=== PATIENT | female | born 1985 | race Caucasian/White ===

== ENCOUNTER 2018-03-29 10:36 | Emergency (ER) | payer SELFPAY ==
[~2018-03-29] VITALS: Ht 162.6 cm; Wt 68.0 kg
--- NOTE | 2018-03-29 10:36 | NUR ---
Patient TOM SPENCERS accompanied by family, transferred to bed 12. RN evaluating patient at bedside.
[2018-03-29 11:03] VITALS: BP 110/74
--- NOTE | 2018-03-29 11:14 | NUR ---
PATIENT PRESENTS TO ED WITH LOWER ABDOMEN CRAMPING WITH VAGINAL BLEEDING X 3DAYS ---DENIES INJURY . PT STATES . DENIES N/V/D; SKIN IS PINK/WARM/DRY; AAOX4 WITH EVEN AND STEADY GAIT; LUNGS CLEAR BL; HR EVEN AND REGULAR; PT DENIES ANY FEVER, CP, SOB, OR COUGH AT THIS TIME; PATIENT STATES PAIN OF 10/10 AT THIS TIME; VSS; PATIENT POSITIONED FOR COMFORT; HOB ELEVATED; BEDRAILS UP X2; BED DOWN. ER MD MADE AWARE OF PT STATUS.
[2018-03-29] MEDS ORDERED: ONDANSETRON 4 MG/2 ML VIAL IVP ONE (11:15)
[2018-03-29] MEDS ORDERED: MORPHINE SULFATE 4 MG/ML SYR IVP ONE (11:15)
[2018-03-29 11:35] LABS: BASOPHILS % (AUTO) 0.4 % (0.0-2.0); EOSINOPHILS # (AUTO) 0.1 K/uL (0-0.4); EOSINOPHILS % (AUTO) 1.5 % (0.0-4.0); HEMATOCRIT 34.1 % (36-48); HEMOGLOBIN 11.7 g/dL (12.0-16.0); LYMPHOCYTES # (AUTO) 2.2 K/uL (2.5-16.5); LYMPHOCYTES % (AUTO) 28.9 % (20.5-51.1); MEAN CORPUSCULAR HEMOGLOBIN 30 pg (27-31); MEAN CORPUSCULAR HGB CONC 34 g/dL (33-37); MEAN CORPUSCULAR VOLUME 87.6 fL (80-94); MONOCYTES # (AUTO) 0.5 K/uL (0.8-1.0); MONOCYTES % (AUTO) 6.7 % (1.7-9.3); NEUTROPHILS # (AUTO) 4.7 K/uL (1.8-7.7); NEUTROPHILS % (AUTO) 62.5 % (42.2-75.2); PLATELET COUNT (AUTO) 231 K/uL (140-450); RED BLOOD CELL COUNT(AUTO) 3.89 MIL/uL (4.20-5.40); RED CELL DISTRIBUTION WIDTH 12.7 % (11.6-13.7); WHITE BLOOD COUNT (AUTO) 7.5 K/uL (4.8-10.8)
--- NOTE | 2018-03-29 11:45 | NUR ---
heavy bleeding with large tissue passed---POC collected and sent to lab
--- NOTE | 2018-03-29 12:00 | NUR ---
ultrasound at bedside
[2018-03-29] MEDS ORDERED: MORPHINE SULFATE 10 MG/ML SYR IVP ONE (12:05)
--- NOTE | 2018-03-29 12:10 | NUR ---
US at bedside for exam.
[2018-03-29] MEDS ORDERED: MORPHINE SULFATE 4 MG/ML SYR ONE (12:13)
--- NOTE | 2018-03-29 13:00 | NUR ---
large amount vaginal bleeding---pt cleaned
[2018-03-29 13:14] LABS: APPEARANCE,URINE HAZY (CLEAR); BILIRUBIN,URINE NEGATIVE (NEGATIVE); BLOOD, URINE 3+ (NEGATIVE); COLOR,URINE RED (YELLOW); LEUKOCYTE ESTERASE ,URINE 2+ (NEGATIVE); NITRITE, URINE POSITIVE (NEGATIVE); UGLUCOSE TRACE (NEGATIVE)
[2018-03-29 13:18] LABS: RBC,URINE TOO NUMEROUS TO COUN /HPF (0-5)
[2018-03-29] MEDS ORDERED: METHYLERGONOVINE 0.2 MG/ML AMP IM ONE (14:20)
[2018-03-29] MEDS ORDERED: NACL 0.9% 1,000 ML IV ONE (14:20)
[2018-03-29] MEDS ORDERED: NACL 0.9% 500 ML IV ONE (14:20)
[2018-03-29] MEDS ORDERED: KETOROLAC 15 MG/ML VIAL IVP ONE (15:00)
[2018-03-29] MEDS ORDERED: fentaNYL 0.05 MG/ML VIAL IVP ONE (15:00)
--- NOTE | 2018-03-29 16:45 | NUR ---
pt on cell phone holding conversation without grimace, no cry---pt will call back from home dc pending 's arrival---will continue to observe for pain control
[2018-03-29 17:19] VITALS: BP 101/70
--- NOTE | 2018-03-29 17:20 | NUR ---
Patient discharged with v/s stable. Written and verbal after care instructions given and explained. Patient alert, oriented and verbalized understanding of instructions. Ambulatory with steady gait. All questions addressed prior to discharge. ID band removed. Patient advised to follow up with PMD. Rx of methergine/norco/zofran given. Patient educated on indication of medication including possible reaction and side effects. Opportunity to ask questions provided and answered.
== END 2018-03-29 17:20 | disposition home or self-care (01) ==
LOC: MED 10:36
DX: O03.9 Complete or unspecified spontaneous abortion without complication (principal)
CPT/HCPCS: 36415; 76817; 81001; 84702; 85025; 86900; 86901; 87086; 96374; 96375; 96376; 99285; J1885; J2210; J2270; J2405; J3010; Q0092; J7030

== ENCOUNTER 2018-04-19 18:26 | Inpatient (IN) | payer SELFPAY ==
[~2018-04-19] VITALS: Ht 160 cm; Wt 65.8 kg
[2018-04-19 18:34] VITALS: BP 103/66
--- NOTE | 2018-04-19 18:44 | NUR ---
Patient ambulated to bed 12 with family. RN evaluating patient at bedside.
--- NOTE | 2018-04-19 18:57 | NUR ---
32 YO F BIB W/ C/O BURNING URINARY SENSATION , VAGINAL BLEEDING, LOWER ABD PAIN & LOWER BACK PAIN X 3 DAYS. PT HAD MISCARRIAGE OF TWINS ABOUT 22 DAYS AGO AND THIS IS WHAT HAS OFFSET HER DEPRESSION. PER PT IS STILL BLEEDING. PT REPORTS THAT HER STOMACH HAS ALSO BEEN BLAOTING AND UNCOMFORTABLE. STANDING FOR 5+ MINS, BLEEDING INCREASES. PT HAS NOT STATED THAT SHE WANTS TO HARM HERSELF, BUT CONCERNED. HX DEPRESSION.
--- NOTE | 2018-04-19 19:10 | NUR ---
Pt report given to ROCK CESAR. Transfer of care at this time.
--- NOTE | 2018-04-19 19:59 | NUR ---
Dr. Bob evaluating patient at bedside.
[2018-04-19] MEDS ORDERED: KETOROLAC 30 MG/ML VIAL IM ONE (20:10)
[2018-04-19 20:41] LABS: BASOPHILS # (AUTO) 0.1 K/uL (0.00-0.22); BASOPHILS % (AUTO) 0.7 % (0.0-2.0); EOSINOPHILS # (AUTO) 0.2 K/uL (0-0.4); EOSINOPHILS % (AUTO) 2.1 % (0.0-4.0); HEMATOCRIT 32.2 % (36-48); HEMOGLOBIN 10.8 g/dL (12.0-16.0); LYMPHOCYTES # (AUTO) 3.4 K/uL (2.5-16.5); LYMPHOCYTES % (AUTO) 39.4 % (20.5-51.1); MEAN CORPUSCULAR HEMOGLOBIN 29 pg (27-31); MEAN CORPUSCULAR HGB CONC 34 g/dL (33-37); MEAN CORPUSCULAR VOLUME 86.7 fL (80-94); MONOCYTES # (AUTO) 0.5 K/uL (0.8-1.0); MONOCYTES % (AUTO) 5.8 % (1.7-9.3); NEUTROPHILS # (AUTO) 4.5 K/uL (1.8-7.7); PLATELET COUNT (AUTO) 328 K/uL (140-450); RED BLOOD CELL COUNT(AUTO) 3.72 MIL/uL (4.20-5.40); RED CELL DISTRIBUTION WIDTH 12.7 % (11.6-13.7); WHITE BLOOD COUNT (AUTO) 8.7 K/uL (4.8-10.8)
--- NOTE | 2018-04-19 20:43 | NUR ---
PT TO US VIA WHEELCHAIR
[2018-04-19 20:53] LABS: ANION GAP 12.4 (8-16); CARBON DIOXIDE 27.3 mmol/L (21-32); CREATININE 0.7 mg/dL (0.6-1.3); POTASSIUM 3.7 mmol/L (3.5-5.1)
[2018-04-19 21:08] LABS: ALBUMIN 3.6 g/dL (3.4-5.0); FREE T4 (FREE THYROXINE) 0.98 ng/dL (0.76-1.46); THYROID STIMULATING HORMONE 1.33 uIU/mL (0.34-3.74); TOTAL BILIRUBIN 0.2 mg/dL (0.0-1.0)
[2018-04-19 21:15] LABS: APPEARANCE,URINE CLEAR (CLEAR); BILIRUBIN,URINE NEGATIVE (NEGATIVE); BLOOD, URINE 1+ (NEGATIVE); COLOR,URINE YELLOW (YELLOW); LEUKOCYTE ESTERASE ,URINE NEGATIVE (NEGATIVE); NITRITE, URINE NEGATIVE (NEGATIVE); UGLUCOSE NEGATIVE (NEGATIVE)
[2018-04-19 21:26] LABS: RBC,URINE 0-5 (RARE) /HPF (0-5); WBC,URINE 0-5 (RARE) /HPF (0-5)
--- NOTE | 2018-04-19 21:30 | NUR ---
PT RESTING IN BED. NAD NOTED
[2018-04-19] MEDS ORDERED: LORazepam 2 MG/ML VIAL IM/IVP PRN (22:40)
[2018-04-19] MEDS ORDERED: ACETAMINOPHEN 325 MG TAB PO PRN (22:40)
[2018-04-19] MEDS ORDERED: MORPHINE SULFATE 2 MG/ML SYR IVP PRN (22:40)
[2018-04-19] MEDS ORDERED: DOCUSATE SODIUM 100 MG GELCAP PO PRN (22:40)
[2018-04-19] MEDS ORDERED: ZOLPIDEM 5 MG TAB PO PRN (22:40)
[2018-04-19] MEDS ORDERED: ONDANSETRON 4 MG/2 ML VIAL IM/IVP PRN (22:40)
[2018-04-19] MEDS ORDERED: HYDROcodone/APAP 5/325 MG 1 TAB TAB PO PRN (22:40)
--- NOTE | 2018-04-19 22:50 | NUR ---
PT RESTING IN BED. RR EVEN/UNLABORED.
--- NOTE | 2018-04-19 22:50 | NUR ---
Dr. Vasquez evaluating patient at bedside.
--- NOTE | 2018-04-19 23:10 | NUR ---
RECEIVED FROM ER PER FLOR AWAKE AND ALERT. ABLE TO VERBALIZE NEEDS WELL. NO SOB. DENIES PAIN AT THIS TIME RT MEDICATED WITH PAIN RELIEVER IN ER. CARE PLANS FOR THE NIGHT DISCUSSED WITH HER AND CALL LIGHT WITH IN REACH AT ALL TIMES. SKIN INTACT PER SPOUSE AND PT. NO EDEMA. CTAB. DX. RETAINED PRODUCTS OF INCEPTION. ROM X 4. PT. ONLY SPEAKS DAPHNIE/AFGHANISTAN LANGUAGE. SPOUSE SPEAKS CANADIAN.
--- NOTE | 2018-04-19 23:17 | NUR ---
Patient will be admitted to care of DR ALVARADO. Admited to TELE. Will go to room 121-A. Belongings list completed. Report to TALI VALLES.
[2018-04-19 23:30] LABS: PROTHROMBIN TIME 9.5 secs (10.8-13.4)
[2018-04-19 23:35] LABS: BENZODIAZEPINE, URINE NEG. ng/mL (NEG <=200); CANNABINOID, URINE NEG. ng/mL (NEG <=50); COCAINE, URINE NEG. ng/mL (NEG <=300); OPIATE, URINE NEG. ng/mL (NEG <=2000); PHENCYCLIDINE SCREEN,URINE NEG. ng/mL (NEG <=25)
--- NOTE | 2018-04-19 23:38 | NUR ---
PT. COMPLAINED THAT SHE IS VERY HUNGRY BECAUSE SHE DIDNT EAT THE WHOLE DAY. CALLED RESIDENT MD AND SHE SAID TO MAKE NPO MIDNIGHT. OK TO EAT NOW. EXPLAINED TO PT. SPOUSE PROS AND CONS OF IT. "OK" PER SPOUSE.
[2018-04-19] MEDS: NACL 0.9% 1,000 ML IV SCH (23:41)
[2018-04-19 23:45] LABS: CHOL/HDL RATIO 3.4 (1-4.5); PHOSPHORUS 3.8 mg/dL (2.5-4.9)
--- NOTE | 2018-04-20 00:12 | NUR ---
REMINDED SPOUSE AND PT. NPO STATUS MIDNIGHT. "OK" PER PT. NOTICED PT. KNOWS AND UNDERSTANDS SYRIAN LANGUAGE A LITTLE BIT. ABLE TO UNDERSTAND SIMPLE SYRIAN. ORIENTED TO ROOM , EP TECH , CALL LIGHT AND RAPID RESPONSE . TELEMETRY MONITORING.
[2018-04-20 00:14] VITALS: BP 108/70
[2018-04-20 00:35] LABS: BARBITURATE, URINE NEG. ng/ml (NEG <=200)
--- NOTE | 2018-04-20 01:23 | NUR ---
PT. CRYING AND SPOUSE REQUESTED FOR SOMETHING TO CALM HER DOWN AND RELAX HER. INFORMED RESIDENT MD. ORDERED ATIVAN IVP . MEDICATED REQUESTED. PT. CRYING. ENCOURAGED TO RELAX AND SLEEP. TELEMETRY MONITORING.
[2018-04-20] MEDS ORDERED: LORazepam 2 MG/ML VIAL IVP SCH (01:30)
--- NOTE | 2018-04-20 01:56 | NUR ---
PT. STILL AWAKE AND TALKING TO SPOUSE. PT. STATED SHE WANTS TO DRINK. REMINDED THAT SHE IS NPO SINCE MIDNIGHT . RE-EXPLAINED PROS AND CONS OF NOT FOLLOWING NPO ORDER. SPOUSE UNDERSTOOD WELL AND THEY WERE LAUGHING AND SMILING ABOUT IT. ENCOURAGED TO STOP DRINKING HIS DRINK IN FRONT OF THE . "OK"
--- NOTE | 2018-04-20 03:19 | NUR ---
CHECKED ON PT. SLEEPING.
[2018-04-20 04:41] VITALS: BP 90/50
--- NOTE | 2018-04-20 04:50 | NUR ---
ENDORSED TO RESIDENT PT.'S BP AT THIS TIME. 90/50 AND PULSE 78. "IT IS OK RT WE GAVE ATIVAN AND SHE IS SLEEPING. " NO ORDERS GIVEN. PT. ABLE TO VERBALIZE NEEDS WELL. NO SOB. NO COMPLAINTS DONE. VAGINAL BLEEDING MINIMAL. ONLY WHEN SHE IS STANDING UP FOR A LONG TIME PER PT. ENCOURAGED TO INFORM NURSE IF SHE FEELS LIKE IT IS LIKE URINATING. "OK'"
--- NOTE | 2018-04-20 06:51 | NUR ---
PT. STATED THAT SHE HAD CHANGED HER FEMININE PADS X 2 SINCE ARRIVAL ON FLOOR. NO BM . DID NOT URINATE. NPO SINCE MIDNIGHT. ABLE TO VERBALIZE SIMPLE NEEDS. TELEMETRY MONITORING.
[2018-04-20] MEDS ORDERED: ONDANSETRON 4 MG/2 ML VIAL IVP PRN ×2 (07:40→11:40)
[2018-04-20] MEDS ORDERED: MORPHINE SULFATE 4 MG/ML SYR IM/IVP PRN (07:40)
[2018-04-20] MEDS ORDERED: IBUPROFEN 800 MG TAB PO PRN (07:40)
[2018-04-20] MEDS ORDERED: ACETAMINOPHEN/CODEINE 300/30MG 1 TAB PO PRN (07:40)
--- NOTE | 2018-04-20 07:45 | NUR ---
PATIENT AWAKE, ALERT. RESPIRATION EVEN, UNLABOR ON ROOM AIR. SKIN DRY AND WARM. IV PATENT AND INTACT. COMPLAINED OF BACK PAIN 11/04. PLAN OF CARE WAS DISCUSSED WITH PATIENT. BED AT LOW POSITION, SIDE RAILS UP. CALL LIGHT WITHIN REACH. FAMILY AT BEDSIDE
[2018-04-20 08:00] VITALS: BP 102/61
[2018-04-20] MEDS ORDERED: FERROUS SULFATE 325 MG TABEC PO SCH ×2 (08:00→12:40)
--- NOTE | 2018-04-20 08:45 | NUR ---
SURGICAL CONSENT WAS OBTAINED AT BEDSIDE, SIGNED BY PATIENT. PATIENT VERBALIZED UNDERSTANDING.
[2018-04-20] MEDS ORDERED: ASCORBIC ACID 500 MG TAB PO SCH ×2 (09:00→12:35)
[2018-04-20 09:08] LABS: BASOPHILS # (AUTO) 0.1 K/uL (0.00-0.22); BASOPHILS % (AUTO) 0.9 % (0.0-2.0); EOSINOPHILS # (AUTO) 0.1 K/uL (0-0.4); EOSINOPHILS % (AUTO) 1.8 % (0.0-4.0); HEMATOCRIT 29.2 % (36-48); HEMOGLOBIN 9.9 g/dL (12.0-16.0); LYMPHOCYTES # (AUTO) 3.6 K/uL (2.5-16.5); LYMPHOCYTES % (AUTO) 45.5 % (20.5-51.1); MEAN CORPUSCULAR HEMOGLOBIN 30 pg (27-31); MEAN CORPUSCULAR HGB CONC 34 g/dL (33-37); MEAN CORPUSCULAR VOLUME 87.2 fL (80-94); MONOCYTES # (AUTO) 0.5 K/uL (0.8-1.0); MONOCYTES % (AUTO) 6.3 % (1.7-9.3); NEUTROPHILS # (AUTO) 3.6 K/uL (1.8-7.7); NEUTROPHILS % (AUTO) 45.5 % (42.2-75.2); PLATELET COUNT (AUTO) 285 K/uL (140-450); RED BLOOD CELL COUNT(AUTO) 3.35 MIL/uL (4.20-5.40); RED CELL DISTRIBUTION WIDTH 12.7 % (11.6-13.7); WHITE BLOOD COUNT (AUTO) 7.9 K/uL (4.8-10.8)
--- NOTE | 2018-04-20 09:12 | NUR ---
PATIENT HAS BEEN SCREENED AND CATEGORIZED LOW NUTRITION RISK. PATIENT WILL BE SEEN WITHIN 7 DAYS OF ADMISSION. 04/26/[address]
[2018-04-20 09:27] LABS: ANION GAP 8.9 (8-16); CREATININE 0.7 mg/dL (0.6-1.3); POTASSIUM 3.9 mmol/L (3.5-5.1)
[2018-04-20 09:28] LABS: MAGNESIUM 1.9 mg/dL (1.8-2.4); PHOSPHORUS 3.5 mg/dL (2.5-4.9)
--- NOTE | 2018-04-20 09:59 | NUR ---
PATIENT COMPLAINED OF NEW ONSET OF RIGHT BREAST PAIN 01/04. WILL NOTIFY
[2018-04-20] MEDS ORDERED: LORazepam 2 MG/ML VIAL IM/IVP SCH (10:30)
[2018-04-20] MEDS: NACL 0.9% 1,000 ML IV SCH (10:40)
--- NOTE | 2018-04-20 10:42 | NUR ---
PATIENT WAS BEING TRANSFERRED TO OR. MEDS WERE GIVEN PER ORDER. PATIENT IS STABLE AT THIS TIME
[2018-04-20] MEDS ORDERED: PROPOFOL 200 MG/20 ML VIAL IV ONE (11:00)
[2018-04-20] MEDS ORDERED: fentaNYL 0.05 MG/ML VIAL ONE (11:13)
[2018-04-20] MEDS ORDERED: MIDAZOLAM 2 MG/2 ML VIAL ONE (11:13)
[2018-04-20] MEDS: MEPERIDINE 25 MG/ML SYR ONE ×2 (11:32→12:10)
[2018-04-20] MEDS ORDERED: LACTATED RINGERS 1,000 ML IV SCH (11:39)
[2018-04-20] MEDS ORDERED: MEPERIDINE 25 MG/ML SYR IVP PRN (11:40)
[2018-04-20] MEDS ORDERED: HYDROmorphone 1 MG/ML AMP IVP PRN (11:40)
[2018-04-20] MEDS ORDERED: diphenhydrAMINE 50 MG/ML VIAL IVP PRN (11:40)
[2018-04-20] MEDS ORDERED: MEPERIDINE 25 MG/ML SYR ONE (12:16)
[2018-04-20 12:30] VITALS: BP 99/61
--- NOTE | 2018-04-20 12:30 | NUR ---
PATIENT WAS TRANSFERRED BACK TO THE UNIT FROM OR. REPORT WAS GIVEN AT BEDSIDE. VS WAS TAKEN. GOLF BALL TRIMMER WAS PLACED. PATIENT IS STABLE AT THIS TIME
[2018-04-20] MEDS ORDERED: HYDROcodone/APAP 5/325 MG 1 TAB TAB PO PRN (12:40)
--- NOTE | 2018-04-20 14:16 | NUR ---
PATIENT AWAKE, ALERT. RESPIRATION EVEN, UNLABOR ON ROOM AIR. COMPLAINED OF VAGINAL PAIN 5/10, MED WAS GIVEN PER ORDER. FAMILY AT BEDSIDE. CALL LIGHT WITHIN REACH
[2018-04-20 16:00] VITALS: BP 94/52
--- NOTE | 2018-04-20 16:26 | NUR ---
PATIENT AWAKE, ALERT. RESPIRATION EVEN, UNLABOR ON ROOM AIR. COMPLAINED OF LEFT BREAST PAIN 6/10 THAT COMES AND GOES, DR. MURPHY WAS MADE AWARE, ADVISED TO CONTINUE TO MONITOR. FAMILY AT BEDSIDE. CALL LIGHT WITHIN REACH
[2018-04-20] MEDS ORDERED: SERT50TA PO (16:33)
[2018-04-20] MEDS ORDERED: VITC500 PO (16:33)
[2018-04-20] MEDS ORDERED: IBUP-2217 PO (16:33)
[2018-04-20] MEDS ORDERED: DOCU-299 PO (16:33)
[2018-04-20] MEDS ORDERED: ACET-9525 PO (16:33)
[2018-04-20] MEDS ORDERED: FER325 PO (16:33)
[2018-04-20 16:37] LABS: BASOPHILS % (AUTO) 0.4 % (0.0-2.0); EOSINOPHILS # (AUTO) 0.1 K/uL (0-0.4); EOSINOPHILS % (AUTO) 0.8 % (0.0-4.0); HEMATOCRIT 28.7 % (36-48); HEMOGLOBIN 9.4 g/dL (12.0-16.0); LYMPHOCYTES # (AUTO) 2.7 K/uL (2.5-16.5); LYMPHOCYTES % (AUTO) 32.2 % (20.5-51.1); MEAN CORPUSCULAR HEMOGLOBIN 29 pg (27-31); MEAN CORPUSCULAR HGB CONC 33 g/dL (33-37); MEAN CORPUSCULAR VOLUME 87.4 fL (80-94); MONOCYTES # (AUTO) 0.5 K/uL (0.8-1.0); MONOCYTES % (AUTO) 6.2 % (1.7-9.3); NEUTROPHILS % (AUTO) 60.4 % (42.2-75.2); PLATELET COUNT (AUTO) 280 K/uL (140-450); RED BLOOD CELL COUNT(AUTO) 3.28 MIL/uL (4.20-5.40); RED CELL DISTRIBUTION WIDTH 12.6 % (11.6-13.7); WHITE BLOOD COUNT (AUTO) 8.3 K/uL (4.8-10.8)
--- NOTE | 2018-04-20 17:44 | NUR ---
DISCHARGE INSTRUCTION AND PRESCRIPTION WERE GIVEN AND EXPLAINED TO THE PATIENT. PATIENT VERBALIZED UNDERSTANDING. IV WAS REMOVED, CATHETER INTACT, NO BLEEDING SEEN. ID BAND WAS REMOVED.
--- NOTE | 2018-04-20 18:25 | NUR ---
PATIENT WAS ESCORTED OUT BY STAFF IN WHEELCHAIR. ALL BELONGINGS WERE TAKEN WITH THE PATIENT. PATIENT IS STABLE AT THIS TIME.
[2018-04-21] MEDS ORDERED: FERROUS SULFATE 325 MG TABEC PO SCH (08:00)
[2018-04-21 09:20] LABS: TRANSFERRIN 260 mg/dL (200-370)
[2018-04-21 12:38] LABS: FOLIC ACID > 20.00 ng/mL (>3.0)
[2018-04-21 13:49] LABS: FERRITIN 6 ng/mL (15-150)
== END 2018-04-20 18:20 | disposition home or self-care (01) | DRG 770 ==
LOC: MED 18:26 → MTU 22:39 → MMU 23:40
PROVIDERS: ADMIT General Practice; ATTEND General Practice
PROC: 10D17ZZ Extraction of Products of Conception, Retained, Via Natural or Artificial Opening (ICD-10-PCS; principal; 2018-04-20 10:40)
DX: O03.1 Delayed or excessive hemorrhage following incomplete spontaneous abortion (principal); N93.8 Other specified abnormal uterine and vaginal bleeding; F32.9 Major depressive disorder, single episode, unspecified; D50.9 Iron deficiency anemia, unspecified
CPT/HCPCS: 36415; 76830; 80048; 80053; 80305; 81001; 82607; 82728; 82746; 83036; 83540; 83690; 83735; 84100; 84134; 84439; 84443; 84702; 85025; 85045; 85610; 85730; 86886; 86900; 86901; 87081; 96372; 99285; J1885; J2060; J2175; J2250; J2704; J3010; J7030; Q0092